=== PATIENT | female | born 1990 | race African-American/Black ===

== ENCOUNTER 2017-08-04 09:17 | Emergency (ER) | payer OTHER ==
[2017-08-04 09:23] VITALS: BP 130/76; PULSE 81; TEMP 98.7; BMI 38.0
--- NOTE | 2017-08-04 09:45 | PDOC ---
History of Present Illness - General Chief Complaint: Pain, Acute Stated Complaint: ABD PAIN (20 WKS ) Time Seen by Provider: 08/04/17 09:31 History Source: Patient - History of Present Illness Timing/Duration: reports: other (this am) Quality: reports: mild Abdominal Pain Onset Location: reports: suprapubic Pain Radiation: reports: no radiation Past History - Past Medical History Allergies/Adverse Reactions: Allergies Allergy/AdvReac Type Severity Reaction Status Date / Time banana [Banana] Allergy Hives Verified 08/04/17 09:19 Penicillins Allergy Hives Verified 08/04/17 09:19 bees Allergy Mild Hives Uncoded 08/04/17 09:19 nuts Allergy Mild Hives Uncoded 08/04/17 09:19 Home Medications: Ambulatory Orders Vit/Iron Fum/Folic AC [ Tablet] 1 each PO DAILY 03/07/14 Asthma: No Cancer: No Cardiac Disorders: No COPD: No Diabetes: No GI Disorders: No Disorders: No HTN: Yes Kidney Stones: No Psychiatric Problems: Yes (DEPRESSION, BI-POLAR) Seizures: Yes (h/o epilepsy) Thyroid Disease: No - Reproductive History PID: No - Immunization History Immunization Up to Date: Yes - Suicide/Smoking/Psychosocial Hx Smoking Status: Yes Smoking History: Never smoked Have you smoked in the past 12 months: Yes Number of Cigarettes Smoked Daily: 4 If you are a former smoker, when did you quit?: 5 MONTHS AGO Information on smoking cessation initiated: No 'Breaking Loose' booklet given: 10/28/11 Hx Alcohol Use: No Drug/Substance Use Hx: No Substance Use Type: None Hx Substance Use Treatment: No Abd/GI Specific PMHX - Complaint Specific PMHX Hepatitis: No Pancreatitis: No Review of Systems - Review of Systems Constitutional: No: Chills, Fever Respiratory: No: Shortness of Breath Cardiac (ROS): No: Chest Pain, Lightheadedness, Palpitations, Syncope ABD/GI: Yes: Nausea, Abdominal cramping. No: Vomiting : No: Dysuria, Discharge, Flank Pain, Hematuria *Physical Exam - Vital Signs Last Vital Signs Temp Pulse Resp BP Pulse Ox 98.7 F 81 16 130/76 97 08/04/17 09:19 08/04/17 09:19 08/04/17 09:19 08/04/17 09:19 08/04/17 09:19 - Physical Exam Comments: 08/04/17 10:03 Well appearing female, sitting on stretcher with handcuffs in place, in no apparent distress at this time General Appearance: Yes: Appropriately Dressed. No: Apparent Distress HEENT: positive: Normal Voice Neck: positive: Supple Respiratory/Chest: positive: Lungs Clear, Normal Breath Sounds. negative: Respiratory Distress Cardiovascular: positive: Regular Rate, S1, S2 Female Pelvic Exam: positive: normal external exam, cervical os closed, normal adnexa. negative: CMT, discharge, adnexal tenderness, vaginal bleeding Gastrointestinal/Abdominal: positive: Soft. negative: Tender Musculoskeletal: negative: CVA Tenderness Integumentary: positive: Dry, Warm Neurologic: positive: senior it auditor II-XII NML intact, Fully Oriented, Alert, Motor Strength 5/5, Other (odd affect). negative: Facial Droop, Confused, Disoriented ED Treatment Course - LABORATORY CBC & Chemistry Diagram: 08/04/17 10:05 08/04/17 10:05 Medical Decision Making - Medical Decision Making 08/04/17 09:41 26-year-old female, poor historian, morbid obesity, bipolar disorder, schizophrenia, syphillis (s/p tx November 2011), hypertension, noncompliant with all meds per patient, chronic headaches, , s/p induction of labor at ~36 weeks 2/2 oligohydramnioisis in 2014, currently incarcerated for possible assault on baby's father ex-girlfriend, brought in by [employer] after pt reported lower abdominal pain this a.m. No bleeding, dysuria, f/c. Denies recent trauma to abdomen. Pt states she follows up with OB at [facility], but does not remember name of M.D. at this time. States she had ultrasound recently, however no INPATIENT CODER encounters or US on record here. Patient also complaining of usual headache x several weeks, but unable to give any details about headaches and denies new symptoms a/w PRESTON. Not taking any meds. Denies prior neuroimaging and none on file here. + nausea, no vomiting, visual changes, photophobia, slurred speech or focal weakness. See exam Abd pain in 2nd trimester Abd/pelvic unremarkable -labs/ua -US in ED as unsure gestational age as pt poor historian PRESTON Appears chronic 2016 encounter w/ neuro for PRESTON but unable to see MD's notes in records, no neuroimaging on fie No new sxs a/w PRESTON Well shilo and stable and in NAD w/ intact neuro exam -tylenol -reassess 08/04/17 12:16 US read as single live intrauterine of 18 weeks 2 days with heart rate of 154 bpm in breech position currently w/ an adequate amount of amniotic fluid seen. Cervical length of 4.2 cm. Labs negative. PRESTON resolved w/ tylenol. Anticipate discharge w/ OB f/u *DC/Admit/Observation/Transfer Diagnosis at time of Disposition: Abdominal pain affecting , Headache - Discharge Dispostion Disposition: HOME Condition at time of disposition: Improved - Referrals Referrals: Gary Carmichael MD [Staff Physician] - Johnnie Mack MD [Staff Physician] - - Patient Instructions Printed Discharge Instructions: Managing Symptoms of Additional Instructions: You had an ultrasound today showing that you are approximately 18 weeks 2 days with cardiac activity. Your beta was. Please follow-up with Dr. Carmichael of OB next week Take Tylenol for headaches and follow-up with your PMD and psychiatrist If headaches continue, make another appointment to see Dr. Mack of neurology - Post Discharge Activity
--- NOTE | 2017-08-04 10:02 | PDOC ---
*Physical Exam - Vital Signs Last Vital Signs Temp Pulse Resp BP Pulse Ox 98.7 F 81 16 130/76 97 08/04/17 09:19 08/04/17 09:19 08/04/17 09:19 08/04/17 09:19 08/04/17 09:19 - Physical Exam Comments: 08/04/17 10:02 The patient was examined by [PAULINE Payne] under my direct supervision. I personally evaluated the patient. I concur with the above findings and the plan of care. ED Treatment Course - LABORATORY CBC & Chemistry Diagram: 08/04/17 10:05 08/04/17 10:05 *DC/Admit/Observation/Transfer Diagnosis at time of Disposition: Abdominal pain affecting , Headache - Discharge Dispostion Disposition: HOME Condition at time of disposition: Improved - Referrals Referrals: Johnnie Mack MD [Staff Physician] - Gary Carmichael MD [Staff Physician] - - Patient Instructions Printed Discharge Instructions: Managing Symptoms of Additional Instructions: You had an ultrasound today showing that you are approximately 18 weeks 2 days with cardiac activity. Your beta was. Please follow-up with Dr. Carmichael of OB next week Take Tylenol for headaches and follow-up with your PMD and psychiatrist If headaches continue, make another appointment to see Dr. Mack of neurology - Post Discharge Activity
[2017-08-04] MEDS ORDERED: ACETAMINOPHEN 325 MG TABLET (FP) PO ONE (10:07)
[2017-08-04 10:14] LABS: BASO % 0.2 % (0-2.0); HEMOGLOBIN 11.9 GM/dL (10.7-15.3); LYMPH % 20.4 % (8-40); MCH 30.5 pg (25.7-33.7); MCHC 34.1 g/dl (32.0-36.0); MEAN CELL VOLUME 89.2 fl (80-96); MEAN PLT VOLUME 7.5 fl (7.5-11.1); MONO % 8.4 % (3.8-10.2); PLATELET COUNT 323 K/MM3 (134-434); RBC 3.92 M/mm3 (3.60-5.2); RDW 13.2 % (11.6-15.6); WHITE BLOOD COUNT 6.2 K/mm3 (4.0-10.0)
[2017-08-04] MEDS ORDERED: ACETAMINOPHEN 325 MG TABLET (FP) ONE (11:09)
[2017-08-04 11:12] LABS: ANION GAP 10 (8-16); BLOOD UREA NITROGEN 12 mg/dL (7-18); CALCIUM 8.3 mg/dL (8.5-10.1); CHLORIDE 105 mmol/L (98-107); CO2 22 mmol/L (21-32); GLUCOSE,RANDOM 76 mg/dL (74-106); POTASSIUM 4.3 mmol/L (3.5-5.1); SODIUM 137 mmol/L (136-145)
[2017-08-04 11:31] LABS: ALK PHOS 51 U/L (45-117); BILIRUBIN,TOTAL 0.2 mg/dL (0.2-1.0); CREATININE 0.4 mg/dL (0.55-1.02); SGOT/AST 6 U/L (15-37); SGPT/ALT 11 U/L (12-78); TOT PROT 6.5 g/dl (6.4-8.2)
[2017-08-04 11:54] LABS: URINE APPEARANCE SLCLOUDY; URINE BILIRUBIN NEGATIVE (NEGATIVE); URINE BLOOD NEGATIVE (NEGATIVE); URINE COLOR YELLOW; URINE GLUCOSE (UA) NEGATIVE (NEGATIVE); URINE KETONE NEGATIVE (NEGATIVE); URINE LEUK ESTERASE TRACE (NEGATIVE); URINE NITRITE NEGATIVE (NEGATIVE); URINE PROTEIN NEGATIVE (NEGATIVE); URINE UROBILINOGEN NEGATIVE mg/dL (0.2-1.0)
[2017-08-04 12:24] LABS: EPI CELLS MANY /HPF (FEW); URINE HYALINE CAST 2 /lpf; URINE MUCUS RARE
[2017-08-04 12:31] LABS: URINE BACTERIA MODERATE /hpf (NONE SEEN)
== END 2017-08-04 12:57 | disposition home or self-care (01) ==
LOC: JER 09:17
DX: O26.892 Other specified pregnancy related conditions, second trimester (principal); Z3A.20 20 weeks gestation of pregnancy; R10.30 Lower abdominal pain, unspecified
CPT/HCPCS: 36415; 76815; 80053; 81003; 81015; 84702; 85025; 86850; 86900; 86901; 99281-25